=== PATIENT | male | born 1945 | race Caucasian/White ===

== ENCOUNTER 2018-11-02 11:34 | Inpatient (IN) | payer MEDICARE, BC ==
[2018-11-02] MEDS ORDERED: Iopamidol 370 76% 50 ML VIAL FS ONE (11:59)
[2018-11-02 12:27] LABS: #Monocytes 0.9 thou/uL (0.11-0.59); #Neutrophils 8.6 thou/uL (1.40-6.50); %Basophils 0.2 % (0.0-1.0); %Eosinophils 0.2 % (0.0-10.0); %Lymphocytes 9.7 % (21.0-51.0); %Monocytes 8.3 % (0.0-10.0); %Neutrophils 81.6 % (42.0-75.0); Hemoglobin 11.8 g/dL (14.0-18.0); Mean Corpuscular HGB CONC 31.1 g/dL (32.0-36.0); Mean Platelet Volume 8.3 fL (7.4-10.4); Platelet Count 247 thou/uL (130-400); RBC Distribution Width 15.2 % (11.5-14.5); Red Blood Cell (RBC) Count 3.68 mill/uL (4.70-6.10); White Blood Cell (WBC) Count 10.6 thou/uL (4.8-10.8)
[2018-11-02 13:11] LABS: Prothrombin Time 81.8 SEC (12.0-14.7)
[2018-11-02 13:12] LABS: PTT 101.3 SEC (22.9-36.1)
[2018-11-02 13:15] LABS: INR-International Normal Ratio 10.4
--- NOTE | 2018-11-02 13:18 | RAD ---
PORTABLE CHEST: Date: 11/02/18 HISTORY: Renal cell carcinoma. COMPARISON: 10/03/11. FINDINGS: Mild elevation left hemidiaphragm. The lung zepeda appear clear. Vascular markings normal. Heart size upper normal. Postop sternotomy change. Prosthetic aortic valve. IMPRESSION: No acute abnormality. POS: JOSHUA
[2018-11-02 13:19] LABS: ALT (SGPT) 16 U/L (8-55); AST (SGOT) 22 U/L (5-34); Albumin 2.4 g/dL (3.4-4.8); Alkaline Phosphatase 90 U/L (40-150); Anion Gap 15 mmol/L (10-20); BUN (Urea Nitrogen) 68 mg/dL (8.4-25.7); Bilirubin, Total 0.6 mg/dL (0.2-1.2); Calc. Creatinine Clearance 0 mL/min (70-130); Calcium 9.2 mg/dL (7.8-10.44); Chloride 116 mmol/L (98-107); Estimated GFR-MDRD 9; Globulin 3.7 g/dL (2.4-3.5); Glucose 83 mg/dL (83-110); Potassium 4.9 mmol/L (3.5-5.1); Protein, Total 6.1 g/dL (5.8-8.1); Sodium 134 mmol/L (136-145)
[2018-11-02 13:26] LABS: Carbon Dioxide 8 mmol/L (23-31)
--- NOTE | 2018-11-02 14:19 | CT ---
FCT Brain WO Con: 11/02/2018 12:39 PM CLINICAL HISTORY: Altered mental status. COMPARISON: None. FINDINGS: Hemorrhage: None. Ventricular system: Normal in size and morphology for the patient's age. Cerebral parenchyma: Normal Midline shift: None. Calvarium: Normal. Visualized Paranasal sinuses: Mild paranasal sinus inflammatory mucosal prominence. IMPRESSION: No acute intracranial abnormalities.
--- NOTE | 2018-11-02 14:31 | CT ---
FCT Abdomen Pelvis WO Con History: [Mild abdominal pain and vomiting and decreased appetite] Comparison: CT from 2012 Findings: Mild scarring in the lung bases. Small nodule within the right middle lobe measuring 4 mm. No pericolic effusion. Extensive soft tissue masslike studding of the left perirenal space marked wit h progressed from 2010 and 2012. Interval enlargement inferior pole cyst. Multiple hemorrhagic cysts. Abnormal right periaortic adenopathy. Abnormal left periaortic adenopathy. There are no dilated loops of large or small bowel. There is abnormal anterior descending: Due to the large soft tissue masses within the left perirenal space with thickened perirenal fascia. The aortic contour is nonaneurysmal. There is unremarkable. No dilated loops of large or small bowel. There are punctate calculi in the intrarenal collecting system. There appears be a 1 mm interpolar as well as for lower pole 1-2 mm calculi. No definite hydronephrosis is appreciated. There is an anteri or cortical mass measuring 51 Hounsfield units which is increased in size from 2012 now measuring claudia roximately 2.8 cm. Impression: 1. Marked interval size increase of the soft tissue masses studding the left perirenal space with ant erior displacement of the colon as well as rightward displacement of the small bowel appears concerni ng for malignant process may reflect metastatic disease from the patient's right-sided renal cancer. 2. Interval enlargement inferior pole left renal mass concerning for superimposed renal cell carcinom a. 3. Periaortic adenopathy suggestive of metastatic disease. 4. Nonobstructive punctate left-sided renal calculi.
[2018-11-02] MEDS ORDERED: Sodium Bicarbonate 150 MEQ in Dextrose 5% in Water 1,000 ML IV SCH (14:45)
[2018-11-02] MEDS ORDERED: Phytonadione 10 MG/ML AMP SLOW IVP SCH (16:30)
[2018-11-02] MEDS ORDERED: Acetaminophen 325 MG TAB PO PRN (16:54)
[2018-11-02] MEDS ORDERED: Acetaminophen 650 MG Suppository PR PRN (16:54)
[2018-11-02] MEDS ORDERED: Ondansetron PF 4 MG/2 ML Vial IVP PRN (16:54)
[2018-11-02] MEDS ORDERED: Ondansetron ODT 4 MG TAB PO PRN (16:54)
--- NOTE | 2018-11-02 17:21 | PRG ---
DATE OF SERVICE: 11/02/2018 SUBJECTIVE: Discussed the case with Diamante Nation and with Dr. Luz. This patient is a 73-year-old male with a history of renal cell carcinoma, status post right nephrectomy. He is followed at [facility] and was just seen there in August. Apparently, had some followup testing at that time, and there was some concern for possible lymphadenopathy in the left cervical area. They were told at that time that the cancer was "stable," but they were unaware of any additional masses at that time. The patient was brought to the emergency room today with some generalized confusion. His reports that he has stopped eating and drinking over the last several days, but his appetite has been very poor even prior to that. He had an INR noted to be 8.9 on and his stopped his Coumadin since that time, he is on the Coumadin for a prosthetic aortic valve. Today, the patient appears to be very cachectic. OBJECTIVE: VITAL SIGNS: His BP is 128/53, pulse 80, respirations 16, temperature 97.9, and O2 saturations 97% on room air. GENERAL: The patient is encephalopathic. He is not combative. He is pleasant and will follow some commands. HEART: Slightly hyperdynamic, irregular, and a mechanical click is noted. LUNGS: Clear. ABDOMEN: Benign. EXTREMITIES: Have trace edema. LABORATORY DATA: Labs are notable for a normal white count, hemoglobin 11.8. INR is now 10.4. His CO2 is 8, his BUN is 68, and his creatinine is 6, which is up from the most recent value of 1.[address] of the abdomen reveals new metastatic disease infiltrating surrounding the left kidney. CT brain is negative. Chest x-ray is negative. IMPRESSION AND PLAN: This patient is a 73-year-old male with a history of renal cell carcinoma, which now appears to be metastatic to the left kidney after he has previously had a right nephrectomy. This apparently is news to the patient and his . The patient primarily follows at [facility]. He has severe acute on chronic renal failure with severe acidosis. Dr. Luz has seen the patient already, starting him on a bicarb drip and some hydration to see if we can improve his acidosis and azotemia. He appears encephalopathic, which may be related to the uremia, but could also be related to the elevated INR or the acidosis. We will keep the patient in the IMCU, give him some vitamin K. the patient's has made a phone call to [facility] at the encouragement of Dr. Luz. The transfer center will speak to their physicians and they have Dr. Luz's number should they want to discuss any further action or potential transfer to that facility. Job ID: [id number]
[2018-11-02 19:09] VITALS: BMI 18.9
--- NOTE | 2018-11-02 19:34 | HP ---
CHIEF COMPLAINT: Confusion and refusing to eat, per his . HISTORY OF PRESENT ILLNESS: Mr. Jha is a 73-year-old man with a background history of renal cell cancer, hypertension, history of mechanical aortic valve replacement, who presents today with confusion and decreased oral intake for the last week. His states she first noticed changes last , when he was refusing to take anything in by mouth, food or drinks, and spitting up with any attempt to encourage him to eat or drink. She denies any vomiting. On Friday, she states they went to run an errand and he drove as he normally does. However, she noticed he began to sort of in and out of the savanah, therefore she had him pullover and drove herself. Later that day, she states he had an episode of weakness resulting in him slowly falling to the floor, but states he did not sustain any head injury or injuries elsewhere. The patient was seen in the [facility] last Friday and due to the INR level of 8, was advised to hold Coumadin, which they have done since then. The INR today in the ER is further elevated at 10.4. Per his , he has shown no signs of bleeding as far as she is aware, though she states he uses the bathroom independently, therefore, she is not certain if he has had any bloody stools or hematuria. He has a history of renal cell cancer, for which he undergoes treatment at [facility]. He was diagnosed in 2010 and has had a previous right nephrectomy. He has been taking daily treatment with Cabometyx. REVIEW OF SYSTEMS: The patient has been afebrile without any recent cough or cold. No complaints of headaches or dizziness. No complaints of visual changes. No slurred speech; however, he has been confused. According to the nurse, he was oriented to the year when he first came in, and at present, believes it is currently 1994. The patient has been also more fidgety. According to his , he has had gradual significant weight loss and has a poor appetite at baseline, but over the last 4 to 5 days, has been refusing any intake by mouth, food or drinks. At baseline, he was drinking a minimal amount of fluids prior to becoming confused. He has had no complaints of chest pain and no complaints of shortness of breath. No abdominal pain or cramping. All other review of systems are negative. Due to treatment for renal cell cancer, he tends to have 2 to 3 loose stools a day at baseline according to his . PAST MEDICAL HISTORY: 1. Renal cell cancer diagnosed in 2010, currently undergoing treatment at [facility]. 2. Hypertension. 3. CKD. 4. Hypercholesterolemia. 5. Hypothyroidism. 6. Anxiety. 7. Depression. PAST SURGICAL HISTORY: 1. Previous right nephrectomy in 2010 due to renal cell cancer. 2. Aortic valve replacement, on Coumadin. 3. Left leg surgery. SOCIAL HISTORY: He does not smoke. No alcohol use. No illicit drug use. He lives with his and is normally fully independent. He was driving up until recently. ALLERGIES: NO KNOWN DRUG ALLERGIES. CURRENT MEDICATIONS: 1. Warfarin. 2. Amlodipine. 3. Pravastatin. 4. Lomotil. 5. Levothyroxine. 6. Calcitriol. 7. Lexapro. 8. Nexium. 9. Cabometyx. PHYSICAL EXAMINATION: GENERAL: The patient appears to be in no distress, but frequently fidgeting with cables and notably confused. The patient appears very cachectic and frail. VITAL SIGNS: Temperature 98.9, pulse 90, respirations 18, O2 saturations 96% on room air, and blood pressure 132/72. HEENT: Normocephalic and atraumatic. Facial wasting noted. Pupils are equal, round, and reactive to light. Sclerae are anicteric. Oropharynx is clear. NECK: Supple. LUNGS: Clear to auscultation bilaterally without wheezes, rales, or rhonchi. CARDIAC: Regular rate and rhythm without audible murmurs, rubs, or gallops. No chest wall tenderness. ABDOMEN: Soft, nontender, nondistended. Normoactive bowel sounds present. EXTREMITIES: Notable for +1 edema. No calf tenderness or swelling. NEUROLOGIC: The patient is confused, but able to follow commands. Alert to person. No focal motor deficits. SKIN: No rash or jaundice. LABORATORY DATA: White blood count 10.6, hemoglobin 11.8, hematocrit 37.9, and platelets 247. PT 81.8, INR 10.4, PTT 101.3. Sodium 134, potassium 4.9, chloride 116, carbon oxide 8, anion gap 15, BUN 68, creatinine 6.03, GFR 9, glucose 83, calcium 9.2, total bilirubin 0.6, AST 22, ALT 16, alkaline phosphatase 97, total protein 6.1, albumin 2.4, globulin 3.7. IMAGING DATA: 1. Chest x-ray, 11/02/2018. Mild elevation of left hemidiaphragm. Prosthetic aortic valve and postop sternotomy change noted. Otherwise, no acute abnormality. 2. CT brain, 11/02/2018. No acute intracranial abnormalities. 3. CT abdomen and pelvis, 11/02/2018. Marked interval increased size of the soft tissue mass abutting left perirenal space with anterior displacement of the colon as well as rightward displacement of the small bowel, concerning for malignant process that may reflect metastatic disease from the patient's right-sided renal cancer. Interval enlargement of inferior pole renal mass concerning for superimposed renal cell carcinoma. Periaortic adenopathy suggestive of metastatic disease. Nonobstructive punctate left-sided renal calculi present. IMPRESSION AND PLAN: Mr. Jha is a 73-year-old man, who is being admitted for management of the followin. Encephalopathy. The patient with confusion since last week. Metastatic disease noted on CT of the abdomen and pelvis. However, no apparent liver metastases, and LFTs are unremarkable. CT brain has not indicated any presence of metastases. This is likely combination of both acidemia and supratherapeutic INR. 2. Acidemia. The patient has been initiated on IV sodium bicarb. We will continue to monitor. We will continue IV hydration. The patient will be admitted to [facility]. 3. Acute on chronic renal failure. The patient's baseline GFR is [address] Luz has been consulted, of Nephrology. We will continue IV hydration and recommendations as per Dr. Luz. 4. Supratherapeutic INR. The patient has been off Coumadin since last FridayOctober 28. We will continue to hold anticoagulants and vitamin K 5 mg IV as the patient is not tolerating/refusing oral intake. We will continue to monitor INR. 5. Hypertension. Monitor blood pressure. 6. Renal cell cancer. The patient's has informed [facility] of his admission and unclear if they will want him transferred to [place]. Awaiting a call back. 7. Venous thromboembolism prophylaxis. On hold, given supratherapeutic INR and risk for bleed. 8. Gastrointestinal prophylaxis. 9. Code status. His states they did discuss advanced directives almost [address] Son, his primary care physician. She does not recall the details of what his wishes were in regard to resuscitation. Therefore, she would like to leave him in full code status and is agreeable to discuss with Palliative Care to place a new advanced directives. She is his surrogate decision maker. The patient's case was discussed with Dr. Hyde, who has also assessed the patient and agrees with plan as described above. Job ID: [id number] [facility]
--- NOTE | 2018-11-02 23:14 | CON ---
DATE OF CONSULTATION: 11/02/2018 CONSULTING PHYSICIAN: Michele Hyde MD. REASON FOR CONSULT: Acute kidney injury. REASON FOR ADMISSION: Altered mentation. HISTORY OF PRESENT ILLNESS: This is a 73-year-old male with history of chronic kidney disease, renal cell carcinoma nephrectomy, hypothyroidism, anxiety, came to the hospital with the above complaint. No fever or chills. The patient has been having poor p.o. intake and has been losing weight. He has been following with [facility]. PAST MEDICAL HISTORY: Positive for renal cell carcinoma, CKD stage 3, hypertension, hyperlipidemia, hypothyroidism, anxiety, depression. PAST SURGICAL HISTORY: Right nephrectomy, aortic valve replacement, left leg surgery. HOME MEDICATIONS: 1. Coumadin. 2. Amlodipine. 3. Pravastatin. 4. Lomotil. 5. Levothyroxine. 6. Calcitriol. 7. Lexapro. 8. Nexium. 9. Cabometyx. 10. Vomiting. ALLERGIES: NO KNOWN DRUG ALLERGIES. SOCIAL HISTORY: No smoking, alcohol, or illicit drug use. FAMILY HISTORY: No history of kidney disease. REVIEW OF SYSTEMS: PHYSICAL EXAMINATION: GENERAL: This is a well-built male, in no apparent distress. VITAL SIGNS: Temperature 97.9, pulse 80, respirations 16, and blood pressure 144/80. HEENT: Atraumatic, normocephalic. Oral mucosa is dry. NECK: Supple. CV: S1 and S2 heard. Rate and rhythm regular. RESPIRATORY: Clear. GI: Abdomen is soft. MUSCULOSKELETAL: 1+ edema. DERMATOLOGIC: No skin rash. NEUROLOGICAL: Slightly confused and somnolent. PSYCH: Not responsive. LABORATORY DATA: Hemoglobin is 11.8. Potassium 4.9, BUN is 68, creatinine 6.02. ASSESSMENT: 1. Acute kidney injury on chronic kidney disease, most likely volume depletion. No hydronephrosis on the CT scan. We will monitor. 2. Severe metabolic acidosis. ABG not available due to elevated INR. 3. Hyponatremia. 4. Elevated BUN. 5. Hypoalbuminemia. 6. Anemia, mild. 7. Altered mentation, we will monitor. PLAN: CT scan shows recurrence of carcinoma. I advised the family to follow with [facility] for now and plan is to hydrate and monitor. No acute indications for dialysis, but if no significant improvement in labs, might need renal replacement therapy. Avoid nephrotoxins. Continue supportive care. We will have bicarb drip and then change it to NS as tolerated. Thank you for the consult. Job ID: [id number]
[2018-11-03] MEDS: Sodium Chloride 0.9% 1,000 ML IV SCH ×3 (04:00→22:20)
[2018-11-03 04:56] LABS: INR-International Normal Ratio 1.7; PTT 46.9 SEC (22.9-36.1)
[2018-11-03 05:09] LABS: ALT (SGPT) 16 U/L (8-55); AST (SGOT) 20 U/L (5-34); Albumin 2.1 g/dL (3.4-4.8); Alkaline Phosphatase 84 U/L (40-150); Anion Gap 12 mmol/L (10-20); BUN (Urea Nitrogen) 67 mg/dL (8.4-25.7); Bilirubin, Total 0.7 mg/dL (0.2-1.2); Calc. Creatinine Clearance 10 mL/min (70-130); Calcium 8.8 mg/dL (7.8-10.44); Carbon Dioxide 17 mmol/L (23-31); Chloride 110 mmol/L (98-107); Estimated GFR-MDRD 9; Globulin 3.4 g/dL (2.4-3.5); Glucose 82 mg/dL (83-110); Protein, Total 5.5 g/dL (5.8-8.1); Sodium 135 mmol/L (136-145)
[2018-11-03 06:13] LABS: #Eosinphils 0.1 thou/uL (0.0-0.7); #Lymphocytes 0.5 thou/uL (1.20-3.40); #Monocytes 0.4 thou/uL (0.11-0.59); %Basophils 0.2 % (0.0-1.0); %Eosinophils 0.9 % (0.0-10.0); %Lymphocytes 7.4 % (21.0-51.0); %Monocytes 5.1 % (0.0-10.0); %Neutrophils 86.4 % (42.0-75.0); Hemoglobin 11.2 g/dL (14.0-18.0); Mean Corpuscular HGB CONC 32.6 g/dL (32.0-36.0); Mean Corpuscular Hemoglobin 32.1 pg (27.0-31.0); Mean Corpuscular Volume 98.6 fL (78.0-98.0); Mean Platelet Volume 8.5 fL (7.4-10.4); Platelet Count 219 thou/uL (130-400); Red Blood Cell (RBC) Count 3.49 mill/uL (4.70-6.10); White Blood Cell (WBC) Count 6.9 thou/uL (4.8-10.8)
[2018-11-03] MEDS: Famotidine/PF 20 mg/2ml Vial SLOW IVP SCH (08:57)
[2018-11-03] MEDS ORDERED: Prevnar 13-Val Conj/PF 0.5 ML SYRINGE IM ONE (09:00)
--- NOTE | 2018-11-03 14:14 | PDOC.PN ---
- Subjective Encounter Start Date: 11/03/18 Encounter Start Time: 14:12 Subjective: pt awake but not very alert.follows simple commands -: but very hard of hearing & defer Qs to who is at bedside -: understands the current diagnosis & has no new Qs - Objective Resuscitation Status - Order Detail: 11/02/18 16:54 Resuscitation Status Routine Co-Sign Provider: Resuscitation Status: FULL: Full Resuscitation Discussed with: Patients Additional comments: Advanced directives in place with Dr. Son, PCP. Does not recall what was decided on, as it was >10 years ago. Would like to discuss with palliative care and remain in FULL Code Status until then. MAR Reviewed: Yes Vital Signs & Weight: Vital Signs (12 hours) Temp 11/03/18 11:25 97.8 F 11/03/18 07:16 98.2 F Weight Admit Weight 139 lb 11.2 oz Weight 139 lb 11.2 oz Most Recent Monitor Data Heart Rate from ECG 71 NIBP 119/82 NIBP BP-Mean 94 Respiration from ECG 16 SpO2 100 I&O: 11/02/18 11/03/18 11/04/18 06:59 06:59 06:59 Intake Total 240 Output Total 250 Balance -250 240 Result Diagrams: 11/03/18 04:34 11/03/18 04:34 Additional Labs: Laboratory Tests 11/02/18 11/03/18 12:51 04:34 Carbon Dioxide 8 L* 17 L Radiology Reviewed by me: Yes Phys Exam - Physical Examination Constitutional: NAD thin and cachectic looking,pale,awake and smiles when talked to HEENT: PERRLA, moist MMs, sclera anicteric, oral pharynx no lesions temporal wasting Neck: no nodes, no JVD, supple, full ROM Respiratory: no wheezing, no rales, no rhonchi, clear to auscultation bilateral Cardiovascular: RRR, no significant murmur Gastrointestinal: soft, non-tender, no distention, positive bowel sounds Musculoskeletal: no edema, pulses present Neurological: non-focal, normal sensation, moves all 4 limbs Psychiatric: normal affect Deviation from normal: oreinted to self and person Skin: no rash Dx/Plan (1) Acute metabolic encephalopathy Code(s): G93.41 - METABOLIC ENCEPHALOPATHY Status: Acute Comment: improving (2) STEFANIA (acute kidney injury) Code(s): N17.9 - ACUTE KIDNEY FAILURE, UNSPECIFIED Status: Acute (3) Metabolic acidosis Code(s): E87.2 - ACIDOSIS Status: Acute (4) Warfarin-induced coagulopathy Code(s): D68.32 - HEMORRHAGIC DISORD D/T EXTRINSIC CIRCULATING ANTICOAGULANTS; T45.515A - ADVERSE EFFECT OF ANTICOAGULANTS, INITIAL ENCOUNTER Status: Acute Comment: INR back to normal at 1.7.MOnitor.cont to hold warfarin (5) Benign hypertension Code(s): I10 - ESSENTIAL (PRIMARY) HYPERTENSION Status: Chronic (6) Prosthetic replacement of heart valve Code(s): Z95.2 - PRESENCE OF PROSTHETIC HEART VALVE Status: Chronic Comment : AVR.Coumadin on hold due to supratherapeutic INR (7) Metastatic renal cell carcinoma Code(s): C64.9 - MALIGNANT NEOPLASM OF UNSP KIDNEY, EXCEPT RENAL PELVIS Status : Chronic Qualifiers: Laterality: left Qualified Code(s): C64.2 - Malignant neoplasm of left kidney, except renal pelvis (8) Protein-calorie malnutrition, severe Code(s): E43 - UNSPECIFIED SEVERE PROTEIN-CALORIE MALNUTRITION Status: Chronic - Plan DVT proph w/SCDs tried to get Pt transferred to [facility] w help of Dr. Luz.Denied -: will cont IVF. Poor candidate for Hemodilaysis -: will further discuss w family and et PCT help as well for decison making -: restart Home meds when more awake to take PO safely.BP controlled -: am labs.Poor prognosis with new Left sided renal mass w Mets * . Review of Systems - Review of Systems Other: can not be obtained reliably due to confusion - Medications/Allergies Allergies/Adverse Reactions: Allergies Allergy/AdvReac Type Severity Reaction Status Date / Time No Known Allergies Allergy Verified 06/20/14 11:01 Medications: Current Medications Acetaminophen (Tylenol) 650 mg PO Q4H PRN PRN Reason: Headache/Fever/Mild Pain (1-3) Acetaminophen (Tylenol) 650 mg KS Q4H PRN PRN Reason: Headache/Fever/Mild Pain (1-3) Famotidine (Pepcid) 20 mg SLOW IVP DAILY [facility] Last Admin: 11/03/18 08:57 Dose: 20 mg Sodium Chloride (Normal Saline 0.9%) 1,000 mls @ 100 mls/hr IV .Q10H [facility] Last Admin: 11/03/18 08:57 Dose: 1,000 mls Ondansetron HCl (Zofran Odt) 4 mg PO Q6H PRN PRN Reason: Nausea/Vomiting Ondansetron HCl (Zofran) 4 mg IVP Q6H PRN PRN Reason: Nausea/Vomiting Sodium Chloride (Flush - Normal Saline) 10 ml IVF Q12HR PRN PRN Reason: Saline Flush Sodium Chloride (Flush - Normal Saline) 10 ml IVF PRN PRN PRN Reason: Saline Flush
--- NOTE | 2018-11-03 15:19 | PQF ---
JANETTE LEWIS RICHA MD [id number] IMCU- B10 [id number] CLINICAL DOCUMENTATION IMPROVEMENT CLARIFICATION FORM: ICD-10 Updated PLEASE DO AN ADDENDUM TO THE PROGRESS NOTE WITH ANY DOCUMENTATION UPDATES OR ADDITIONS AND CARRY THROUGH TO DC SUMMARY. THANK YOU. DATE: 11/03/18 ATTN: DR. Liz ADAN Please exercise your independent, professional judgment in responding to the clarification form. Clinical indicators are provided on the bottom of this form for your review. Please check appropriate box(s): [ ] Encephalopathy: Type: [X ] Acute [ ] Subacute [ ] Chronic Etiology: [ ] Hypertensive [ X] Metabolic [ ] Toxic [ ] Transient Alteration of Awareness [ ] Other diagnosis [ ] Unable to determine In addition, please specify: Present on Admission (POA): [ X ] Yes [ ] No [ ] Unable to determine For continuity of documentation, please document condition throughout progress notes and discharge summary. Thank You. CLINICAL INDICATORS - SIGNS / SYMPTOMS / LABS / PN (JOHN) IMPRESSION AND PLAN : HE APPEARS ENCEPHALOPATHIC, WHICH MAY BE RELATED TO THE UREMIA, BUT COULD ALSO BE RELATED TO THE ELEVATED INR, OR THE ACIDOSIS 4 H & P (LOPEZ) IMPRESSION AND PLAN: 1) ENCEPHALOPATHY: THE PATIENT WITH CONFUSION SINCE LAST WEEK. METASTATIC DISEASE NOTED TO THE ABDOMEN AND PELVIS. HOWEVER, NO APPARENT LIVER METASTASIS. AND THE LFT'S ARE UNREMARKABLE. CT BRAIN HAS NOT INDICATED ANY PRESENCE OF METASTASIS. THIS IS MOST LILEY COMBINATION OF BOTH ACIDEMIA AND SUPRA-THERAPEUTIC INR. NO FURTHER MENTION TO DATE BMI 18.9 RISK FACTORS ALTERED MENTAL STATUS METASTATIC CANCER ADVANCED AGE DEHYDRATION TREATMENTS: IMCU MONITORING IV FLUIDS NS 11/02-PRESENT BRAIN CT DONE IN ER THANK YOU! TAMERA (This form is maintained as a part of the permanent medical record) 2014 [employer], [employer]. All Rights Reserved [email or web address] [phone] CHUCK
--- NOTE | 2018-11-03 15:37 | PQF ---
JANETTE LEWIS RICHA MD [id number] CU- B10 [id number] CLINICAL DOCUMENTATION IMPROVEMENT CLARIFICATION FORM: ICD-10 Updated PLEASE DO AN ADDENDUM TO THE PROGRESS NOTE WITH ANY DOCUMENTATION UPDATES OR ADDITIONS AND CARRY THROUGH TO DC SUMMARY. THANK YOU. Date: 11/03/18 ATTN: DR. ADAN Please exercise your independent, professional judgment in responding to the clarification form. Clinical indicators are provided on the bottom of this form for your review. Please check appropriate box(s): [ ] Protein Calorie Malnutrition: [ ] Mild [ ] Moderate [ X] Severe [ ] Cachexia [ ] Other diagnosis [ ] Unable to determine In addition, please specify: Present on Admission (POA): [ X ] Yes [ ] No [ ] Unable to determine CLINICAL INDICATORS - SIGNS / SYMPTOMS / LABS 11/02 PN (JOHN) SUBJECTIVE: THE PT APPEARS TO BE VERY CACHETIC, REPORTS THAT HE HAS STOPPED EATING AND DRINKING OVER THE LAST SEVERAL DAYS, BUT THAT HIS APPETITES HAS BEEN VERY POOR EVEN PRIOR TO THAT BMI 18.9 RISK FACTORS HX OF RENAL CELL CARCINOMA WITH RECENT METASTASIS TO LEFT KIDNEY REPORTS PT HAS NOT EATEN IN DAYS CHRONIC DIARRHEA D/T CHEMO DRUG TREATMENT: Dietary consult Nutritional supplements (NEPRO TID) THANK YOU ! TAMERA (This form is maintained as a part of the permanent medical record) 2014 [employer]. All Rights Reserved [email or web address] [phone] [email or web address]
--- NOTE | 2018-11-03 17:54 | PRG ---
DATE OF SERVICE: 11/03/2018 SUBJECTIVE: Patient was seen and examined at bedside and overnight events noted. Patient denies any shortness of breath or chest pain or palpitation. No history of nausea or vomiting or diarrhea or fever or chills or cramps. OBJECTIVE: GENERAL: This is a thin-built male, in in no acute distress. VITAL SIGNS: Temperature 98.0. Heart rate 78. Respiratory rate 18. Blood pressure 107/63. HEENT: Atraumatic, normocephalic. Oral mucosa is moist NECK: Supple. CARDIOVASCULAR: S1, S2 heard. Rate and rhythm regular. RESPIRATORY: Clear to auscultation. GASTROINTESTINAL: Abdomen is soft. MUSCULOSKELETAL: No tenderness. No edema. DERMATOLOGIC: No skin rash. NEUROLOGIC: Alert and awake and oriented X3. No focal neurologic deficits. Moving all the extremities. PSYCHIATRIC: Mood and affect normal. LABORATORY DATA: Potassium is 4.0, BUN is 67, creatinine is 5.9 ASSESSMENT AND PLAN: 1. Acute kidney injury on chronic kidney stage 3, no improvement in renal function. 2. Metabolic acidosis, better. 3. Hyponatremia. 4. Anemia. 5. Metastatic renal cell carcinoma with poor prognosis. PLAN: Had discussion with MD Sheehan, they declined the transfer and wants to follow up while he is outpatient and also had discussion with the and sister at the bedside and plan is to continue IV fluids for one more day to see improvement in renal function. If no improvement by tomorrow, the patient wants to pursue dialysis at least couple of sessions to see any improvement in mental status and therefore we will continue with dialysis and improvement of uremia. If no significant improvement, the patient and family wants to pursue comfort measures or hospice care. We will continue to follow. Job ID: [id number]
[2018-11-03 18:20] LABS: Bilirubin Negative (Negative); Blood, Urine Large (Negative); Clarity CLOUDY (Clear); Glucose, Urine (Dipstick) Negative (Negative); Leukocyte Moderate (Negative); Nitrite Negative (Negative); Protein, Urine (Dipstick) 30 mg/dL (Neg-Trace); Specific Gravity, Urine 1.008 (1.002-1.036); Urobilinogen 0.2 mg/dL (0.2-1.0)
[2018-11-03 18:24] LABS: Hyaline Casts/LPF 0-3 HYALINE CAST LPF (0-3 Hyaline); RBC/HPF GREATER THAN 50-TNTC HPF (0-3); Squamous Epithelial None Seen HPF (0-3)
[2018-11-03 18:27] LABS: Yeast-AUWi Flag 79.5 (0-25.0)
[2018-11-03 18:38] LABS: Bacteria/HPF Rare-Few HPF (None Seen); Yeast-All Forms None Seen HPF (None Seen)
[2018-11-04 05:14] LABS: Anion Gap 13 mmol/L (10-20); BUN (Urea Nitrogen) 64 mg/dL (8.4-25.7); Calc. Creatinine Clearance 11 mL/min (70-130); Calcium 8.3 mg/dL (7.8-10.44); Carbon Dioxide 13 mmol/L (23-31); Chloride 116 mmol/L (98-107); Estimated GFR-MDRD 11; Glucose 70 mg/dL (83-110); Potassium 3.9 mmol/L (3.5-5.1); Sodium 138 mmol/L (136-145)
[2018-11-04] MEDS: Sodium Chloride 0.9% 1,000 ML IV SCH (09:18)
[2018-11-04] MEDS: Amlodipine 5 MG TAB PO SCH (09:18)
[2018-11-04] MEDS: Famotidine/PF 20 mg/2ml Vial SLOW IVP SCH (09:18)
[2018-11-04] MEDS ORDERED: Sodium Bicarbonate 150 MEQ in Sodium Chloride 0.9% 1,000 ML IV SCH (10:15)
[2018-11-04] MEDS ORDERED: Sodium Bicarbonate 150 MEQ in Dextrose 5% in Water 1,000 ML IV SCH ×2 (10:45→11:00)
--- NOTE | 2018-11-04 11:02 | PRG ---
DATE OF SERVICE: 11/04/2018 SUBJECTIVE: Patient was seen and examined at bedside and overnight events noted. Patient denies any shortness of breath or chest pain or palpitation. No history of nausea or vomiting or diarrhea or fever or chills or cramps. OBJECTIVE: GENERAL: This is a thin-built male, in no apparent distress. VITAL SIGNS: Temperature . Pulse . Respiratory rate 18. Blood pressure 119/76. HEENT: Atraumatic, normocephalic. Oral mucosa is moist NECK: Supple. CARDIOVASCULAR: S1, S2 heard. Rate and rhythm regular. RESPIRATORY: Clear to auscultation. GASTROINTESTINAL: Abdomen is soft. MUSCULOSKELETAL: No tenderness. No edema. DERMATOLOGIC: No skin rash. NEUROLOGIC: Alert and awake and oriented X3. No focal neurologic deficits. Moving all the extremities. PSYCHIATRIC: Mood and affect normal. LABORATORY DATA: Potassium is 3.9, BUN is 64, creatinine is 5.3. ASSESSMENT AND PLAN: 1. Acute kidney injury on chronic kidney disease 3. Seems likely renal function is getting better. Creatinine down to 5.3 with hydration. 2. Metabolic acidosis. We will have the bicarb drip today. 3. Hyponatremia. 4. Anemia. 5. Metastatic renal cell carcinoma. 6. Prognosis is guarded. Renal function seems to be getting better. Mentation likely better. We will continue on hydration for now. No acute indication for dialysis. We will follow. We will add bicarb drip. Job ID: [id number]
--- NOTE | 2018-11-04 15:43 | PDOC.PN ---
- Subjective Encounter Start Date: 11/04/18 Encounter Start Time: 15:20 Subjective: f/u for metastatic renal cell carcinoma and STEFANIA/CKD with minimal -: improvement in renal function with IVF's. Remains weak and has -: not ambulated yet. Tolerating po intake in small quantities. - Objective Resuscitation Status - Order Detail: 11/02/18 16:54 Resuscitation Status Routine Co-Sign Provider: Resuscitation Status: FULL: Full Resuscitation Discussed with: Patients Additional comments: Advanced directives in place with Dr. Son, PCP. Does not recall what was decided on, as it was >10 years ago. Would like to discuss with palliative care and remain in FULL Code Status until then. MAR Reviewed: Yes Vital Signs & Weight: Vital Signs (12 hours) Temp Pulse BP 11/04/18 09:18 67 118/76 11/04/18 07:15 98.4 F 11/04/18 03:55 97.9 F Weight Admit Weight 139 lb 11.2 oz Weight 152 lb 8.958 oz Most Recent Monitor Data Heart Rate from ECG 79 NIBP 115/61 NIBP BP-Mean 79 Respiration from ECG 16 SpO2 99 I&O: 11/03/18 11/04/18 11/05/18 06:59 06:59 06:59 Intake Total 2120 Output Total 250 450 Balance -250 1670 Result Diagrams: 11/03/18 04:34 11/04/18 04:39 Additional Labs: Laboratory Tests 11/02/18 11/02/18 11/02/18 12:10 12:51 12:51 Hgb 11.8 L INR 10.4 H* Sodium 134 L BUN 68 H Creatinine 6.03 H 11/03/18 11/03/18 04:34 04:34 Hgb INR 1.7 Sodium 135 L BUN 67 H Creatinine 5.98 H EKG Reviewed by me: Yes (Tele - A-fib in 50's) Phys Exam - Physical Examination ill-appearing, frail, with bitemporal wasting HEENT: PERRLA, sclera anicteric, oral pharynx no lesions Neck: no nodes, no JVD, supple, full ROM Respiratory: no wheezing, no rales, no rhonchi, clear to auscultation bilateral S1, S2 Cardiovascular: no rub, gallop, irregular Gastrointestinal: soft, non-tender, no distention, positive bowel sounds Musculoskeletal: no edema, pulses present Neurological: normal sensation, moves all 4 limbs Skin: normal turgor, cap refill <2 seconds Dx/Plan (1) STEFANIA (acute kidney injury) Code(s): N17.9 - ACUTE KIDNEY FAILURE, UNSPECIFIED Status: Acute Comment: Persistent, likely new baseline given renal cell carcinoma, contemplating HD but likely will not affect group home survival or quality of life, serial creatinine (2) Acute metabolic encephalopathy Code(s): G93.41 - METABOLIC ENCEPHALOPATHY Status: Acute Comment: Mild improvement, likely multifactorial process (3) Warfarin-induced coagulopathy Code(s): D68.32 - HEMORRHAGIC DISORD D/T EXTRINSIC CIRCULATING ANTICOAGULANTS; T45.515A - ADVERSE EFFECT OF ANTICOAGULANTS, INITIAL ENCOUNTER Status: Acute Comment: INR back to normal at 1.7, Hold Coumadin (4) Metastatic renal cell carcinoma Code(s): C64.9 - MALIGNANT NEOPLASM OF UNSP KIDNEY, EXCEPT RENAL PELVIS Status : Chronic Qualifiers: Laterality: left Qualified Code(s): C64.2 - Malignant neoplasm of left kidney, except renal pelvis Comment: Appears end-stage process, palliative care and transition to hospice for home (5) Protein-calorie malnutrition, severe Code(s): E43 - UNSPECIFIED SEVERE PROTEIN-CALORIE MALNUTRITION Status: Chronic Comment: Nepro TID, Reg Diet - Plan plan discussed w/ family, PT/OT, social work manager, out of bed/ambulate, DVT proph w/SCDs Continue supportive mgmt -: Continue IVF's -: Avoid nephrotoxic meds and limit contrast -: Palliative care, consider hospice -: PT evaluation for functional assessment * AM lab: BMP
[2018-11-05 05:46] LABS: Anion Gap 11 mmol/L (10-20); BUN (Urea Nitrogen) 61 mg/dL (8.4-25.7); Calc. Creatinine Clearance 13 mL/min (70-130); Carbon Dioxide 17 mmol/L (23-31); Chloride 114 mmol/L (98-107); Estimated GFR-MDRD 11; Glucose 77 mg/dL (83-110); Potassium 3.4 mmol/L (3.5-5.1); Sodium 139 mmol/L (136-145)
[2018-11-05] MEDS: Sodium Chloride 0.9% 1,000 ML IV SCH ×3 (06:00→16:54)
[2018-11-05] MEDS: Amlodipine 5 MG TAB PO SCH (09:34)
[2018-11-05] MEDS ORDERED: Diphenoxylate HCl/Atropine Tablet PO PRN ×2 (10:06→10:39)
[2018-11-05] MEDS ORDERED: Non-Formulary Item 1 EACH (Ascorbic Acid [Vitamin C] 500 MG) PO SCH (10:06)
[2018-11-05] MEDS ORDERED: Famotidine 20 MG TAB PO SCH (10:15)
--- NOTE | 2018-11-05 10:22 | PDOC.PN ---
- Subjective Encounter Start Date: 11/05/18 Encounter Start Time: 10:05 Subjective: f/u metastatic renal cell carcinoma with STEFANIA appearing to be end- stage -: process. No HD planned. Family wishing to pursue hospice care. - Objective Resuscitation Status - Order Detail: 11/02/18 16:54 Resuscitation Status Routine Co-Sign Provider: Resuscitation Status: FULL: Full Resuscitation Discussed with: Patients Additional comments: Advanced directives in place with Dr. Son, PCP. Does not recall what was decided on, as it was >10 years ago. Would like to discuss with palliative care and remain in FULL Code Status until then. MAR Reviewed: Yes Vital Signs & Weight: Vital Signs (12 hours) Temp Pulse BP 11/05/18 09:34 67 109/58 L 11/05/18 04:00 99.1 F 11/05/18 01:52 99.8 F H Weight Admit Weight 139 lb 11.2 oz Weight 152 lb 8.958 oz Most Recent Monitor Data Heart Rate from ECG 83 NIBP 121/57 NIBP BP-Mean 78 Respiration from ECG 15 SpO2 98 I&O: 11/04/18 11/05/18 11/06/18 06:59 06:59 06:59 Intake Total 2120 120 Output Total 450 250 Balance 1670 -130 Result Diagrams: 11/03/18 04:34 11/05/18 05:12 Additional Labs: Laboratory Tests 11/02/18 11/02/18 11/02/18 12:10 12:51 12:51 Hgb 11.8 L INR 10.4 H* Sodium 134 L BUN 68 H Creatinine 6.03 H 11/03/18 11/03/18 04:34 04:34 Hgb INR 1.7 Sodium 135 L BUN 67 H Creatinine 5.98 H EKG Reviewed by me: Yes (Tele - A-fib in 60's) Phys Exam - Physical Examination frail, alert, responds to questions HEENT: PERRLA, sclera anicteric, oral pharynx no lesions Neck: no nodes, no JVD, supple, full ROM Respiratory: no wheezing, no rales, no rhonchi, clear to auscultation bilateral S1, S2 Cardiovascular: no rub, gallop, irregular Gastrointestinal: soft, non-tender, no distention, positive bowel sounds Musculoskeletal: no edema, pulses present Neurological: normal sensation, moves all 4 limbs Skin: normal turgor, cap refill <2 seconds Dx/Plan (1) STEFANIA (acute kidney injury) Code(s): N17.9 - ACUTE KIDNEY FAILURE, UNSPECIFIED Status: Acute Comment: Persistent, likely new baseline given renal cell carcinoma, HD contemplated but likely will not affect nursing home survival or quality of life and family wishing to pursue hospice (2) Acute metabolic encephalopathy Code(s): G93.41 - METABOLIC ENCEPHALOPATHY Status: Acute Comment: Mild improvement, likely multifactorial process (3) Warfarin-induced coagulopathy Code(s): D68.32 - HEMORRHAGIC DISORD D/T EXTRINSIC CIRCULATING ANTICOAGULANTS; T45.515A - ADVERSE EFFECT OF ANTICOAGULANTS, INITIAL ENCOUNTER Status: Acute Comment: INR back to normal at 1.7, Resume Coumadin (4) Metastatic renal cell carcinoma Code(s): C64.9 - MALIGNANT NEOPLASM OF UNSP KIDNEY, EXCEPT RENAL PELVIS Status : Chronic Qualifiers: Laterality: left Qualified Code(s): C64.2 - Malignant neoplasm of left kidney, except renal pelvis Comment: Appears end-stage process, palliative care and transition to hospice for home (5) Protein-calorie malnutrition, severe Code(s): E43 - UNSPECIFIED SEVERE PROTEIN-CALORIE MALNUTRITION Status: Chronic Comment: Nepro TID, Reg Diet - Plan plan discussed w/ family, social work associate, out of bed/ambulate, DVT proph w/SCDs Continue supportive mgmt -: Resume Coumadin -: Hospice consult for home -: Continue IVF's for another 24h -: Home 11/06/18 with hospice * .
--- NOTE | 2018-11-05 10:30 | PDOC.EVN ---
Event Note - Event Note Event Note: ACP Note: Discussed current clinical situation with pt and and that the renal failure is an end-stage process in the context of advanced metastatic renal cell carcinoma and HD will not change the quality of life or outcome. Discussed hospice care and pt and wishing to pursue this option for home. Code status remains DNAR confirmed with pt and . Will continue supportive mgmt another 24h with plans to coordinate with hospice and d/c home 11/06/18. Total ACP time: 16min
[2018-11-05] MEDS ORDERED: Ascorbic Acid 500 mg Chewable Tablet PO SCH (10:45)
--- NOTE | 2018-11-05 11:09 | PRG ---
DATE OF SERVICE: 11/05/2018 SUBJECTIVE: Patient was seen and examined at bedside and overnight events noted. Patient denies any shortness of breath or chest pain or palpitation. No history of nausea or vomiting or diarrhea or fever or chills or cramps. OBJECTIVE: GENERAL: This is a thin-built male, in no apparent distress. VITAL SIGNS: Temperature 99.1. Pulse 87. Respiratory rate 18. Blood pressure 121/57. HEENT: Atraumatic, normocephalic. Oral mucosa is moist NECK: Supple. CARDIOVASCULAR: S1, S2 heard. Rate and rhythm regular. RESPIRATORY: Clear to auscultation. GASTROINTESTINAL: Abdomen is soft. MUSCULOSKELETAL: No tenderness. No edema. DERMATOLOGIC: No skin rash. NEUROLOGIC: Alert and awake and oriented X3. No focal neurologic deficits. Moving all the extremities. PSYCHIATRIC: Mood and affect normal. LABORATORY DATA: Potassium is 3.4, BUN is 61, and creatinine is 5.1. ASSESSMENT AND PLAN: 1. Acute kidney injury on chronic kidney disease. No significant improvement in renal function with hydration, most likely secondary to worsening renal cell carcinoma. The patient is very empathetic, very weak. Family does not wish to have any aggressive measures including surgery or even dialysis. We will stop IV fluids. 2. Metabolic acidosis. 3. Hyponatremia. 4. Anemia. 5. Metastatic renal cell carcinoma. Prognosis guarded. Family does not want to have aggressive measures. Agree with comfort measures for now. Job ID: [id number]
[2018-11-05] MEDS: Cholestyramine/Aspartame 4 gm Packet PO SCH ×2 (11:43→21:18)
[2018-11-05] MEDS ORDERED: CHOLESTYRAMINE 4 GM PO SCH (15:00)
[2018-11-05] MEDS ORDERED: [UNRECOGNIZED DRUG - OTHER] PO SCH (15:00)
[2018-11-05] MEDS: Famotidine/PF 20 mg/2ml Vial SLOW IVP SCH (16:54)
[2018-11-05] MEDS ORDERED: Warfarin Sodium 2 MG TAB PO SCH (17:00)
[2018-11-05] MEDS ORDERED: Non-Formulary Item 1 EACH (Calcitriol [Calcitriol] 0.5 MCG) PO SCH (21:00)
[2018-11-06 01:52] VITALS: BP 112/60
[2018-11-06 05:55] LABS: INR-International Normal Ratio 1.3
[2018-11-06 06:19] LABS: Anion Gap 10 mmol/L (10-20); BUN (Urea Nitrogen) 61 mg/dL (8.4-25.7); Calc. Creatinine Clearance 13 mL/min (70-130); Calcium 7.9 mg/dL (7.8-10.44); Carbon Dioxide 17 mmol/L (23-31); Chloride 115 mmol/L (98-107); Estimated GFR-MDRD 11; Glucose 76 mg/dL (83-110); Potassium 3.7 mmol/L (3.5-5.1); Sodium 138 mmol/L (136-145)
[2018-11-06] MEDS ORDERED: Ferrous Sulfate 325 MG TAB PO SCH (09:00)
[2018-11-06] MEDS ORDERED: Escitalopram Oxalate 10 mg Tablet PO SCH (09:00)
[2018-11-06] MEDS ORDERED: MULTIVIT MIN PO SCH (09:00)
[2018-11-06] MEDS ORDERED: MAGNESIUM OXIDE 1000 MG PO SCH (09:00)
[2018-11-06] MEDS ORDERED: Cyanocobalamin (Vitamin B-12) 1,000 MCG TAB PO SCH (09:00)
[2018-11-06] MEDS ORDERED: Magnesium Oxide 250 MG TAB PO SCH (09:00)
[2018-11-06] MEDS ORDERED: Ascorbic Acid 500 mg Chewable Tablet PO SCH (09:00)
[2018-11-06] MEDS ORDERED: Famotidine 20 MG TAB PO SCH (09:00)
[2018-11-06] MEDS ORDERED: [UNRECOGNIZED DRUG - OTHER] PO SCH (09:00)
[2018-11-06] MEDS ORDERED: LUT PO SCH (09:00)
[2018-11-06] MEDS ORDERED: Non-Formulary Item 1 EACH (Iron [Iron] 65 MG) PO SCH (09:00)
[2018-11-06] MEDS ORDERED: LYCOPENE PO SCH (09:00)
[2018-11-06] MEDS ORDERED: Multivit, Therapeutic 1 TAB PO SCH (09:00)
[2018-11-06] MEDS ORDERED: CABOZANTINIB S MALATE 60 MG PO SCH ×2 (09:00)
[2018-11-06] MEDS: Cholestyramine/Aspartame 4 gm Packet PO SCH (09:50)
[2018-11-06] MEDS: Amlodipine 5 MG TAB PO SCH (09:52)
[2018-11-06 11:10] VITALS: TEMP 99.8
--- NOTE | 2018-11-06 15:43 | PRG ---
DATE OF SERVICE: 11/06/2018 SUBJECTIVE: Patient was seen and examined at bedside and overnight events noted. Patient denies any shortness of breath or chest pain or palpitation. No history of nausea or vomiting or diarrhea or fever or chills or cramps. OBJECTIVE: GENERAL: This is a well-built male in no acute distress. VITAL SIGNS: Temperature 99.8. Heart rate 88. Respiratory rate . Blood pressure 106/63. HEENT: Atraumatic, normocephalic. Oral mucosa is moist NECK: Supple. CARDIOVASCULAR: S1, S2 heard. Rate and rhythm regular. RESPIRATORY: Clear to auscultation. GASTROINTESTINAL: Abdomen is soft. MUSCULOSKELETAL: No tenderness. No edema. DERMATOLOGIC: No skin rash. NEUROLOGIC: Alert and awake and oriented X3. No focal neurologic deficits. Moving all the extremities. PSYCHIATRIC: Mood and affect normal. LABORATORY DATA: Potassium is 3.7, BUN is 61, creatinine is 5.1. ASSESSMENT AND PLAN: 1. Acute kidney injury on chronic kidney disease, stage 5 with poor prognosis. 2. Metabolic acidosis. 3. Hyponatremia. 4. Anemia. 5. Metastatic renal cell carcinoma. The patient is going home with [facility]. I will sign off. Job ID: [id number]
[2018-11-06] MEDS ORDERED: Warfarin Sodium 5 MG TAB PO SCH (17:00)
--- NOTE | 2018-11-07 03:04 | DIS ---
DATE OF ADMISSION: 11/02/2018 DATE OF DISCHARGE: 11/06/2018 DISCHARGE DIAGNOSES: 1. Acute kidney injury, likely end-stage renal disease secondary to metastatic renal cell carcinoma. 2. Acute metabolic encephalopathy, multifactorial, improved. 3. Warfarin-induced coagulopathy, resolved. 4. Metastatic renal cell carcinoma, end-stage process. 5. Severe protein-calorie malnutrition. CONSULTATIONS: Dr. Luz with Nephrology Service. PERTINENT LABORATORY AND X-RAY FINDINGS: Sodium ranged between 134 to 138. Creatinine ranged between 5.02 to 6.03. Estimated GFR ranged between 9 to 11. Albumin ranged between 2.1 to 2.4. CBC showed a hemoglobin ranged between 11.2 to 11.8. INR ranged between 1.[address] of the abdomen and pelvis dated 11/02/2018 showed marked interval increase in size of soft tissue mass of the left perirenal space consistent with renal cell carcinoma with associated metastasis. Interval enlargement of the inferior pole left renal mass. Periaortic adenopathy suggestive of metastatic process noted. Portable chest x-ray dated 11/02/2018 showed no acute cardiopulmonary process. CT of the brain without contrast dated 11/02/2018 showed no acute intracranial process. HOSPITAL COURSE: The patient was initially admitted after presenting with altered mental status, confusion, and decreased oral intake. The patient with a significant history of advanced renal cell carcinoma, presenting with the above complaints. The patient was initially noted with elevated INR level of 10 in the context of chronic Coumadin therapy. The patient was discontinued on Coumadin and received vitamin K. Serial INR showed overall resolving of the Coumadin-induced coagulopathy. The patient underwent CT imaging of the abdomen and pelvis showing findings as described previously with advanced renal cell carcinoma with metastasis. The patient also was noted with acute kidney injury, treated with IV fluids. However, this was deemed an obstructive uropathy due to the renal cell carcinoma, not improving with IV fluid hydration and discontinuation of nephrotoxic agents. The patient was initially considering pursuing hemodialysis as an option. However, due to the patient's multiple comorbid status and advanced renal cell carcinoma, no specific improvement and quality of life or outcome was expected by initiating hemodialysis. The patient and his decided to pursue hospice care and will transition to hospice for home. I have examined the patient at the time of discharge and discussed followup instructions. The patient and verbalized understanding and in agreement, ready for discharge on 11/06/2018. DISCHARGE MEDICATIONS: 1. Amlodipine 5 mg p.o. daily. 2. Vitamin C 500 mg p.o. daily. 3. Cabometyx 60 mg p.o. daily. 4. Calcitriol 0.5 mcg p.o. b.i.d. 5. Cholestyramine 4 g p.o. t.i.d. 6. Vitamin B12 1000 mcg p.o. daily. 7. Lexapro 10 mg p.o. daily. 8. Nexium 20 mg p.o. daily. 9. Iron 65 mg p.o. daily. 10. Levothyroxine 175 mcg p.o. daily. 11. Magnesium oxide 1000 mg p.o. daily. 12. Pravachol 80 mg p.o. daily. 13. Multivitamin 1 tablet p.o. daily. 14. Coumadin 2 mg p.o. daily. FOLLOWUP: The patient may follow up with his primary care provider, Dr. Rito Son. CONDITION ON DISCHARGE: Guarded. ACTIVITY: Ad-kyle. DIET: Regular. CODE STATUS: Do not attempt resuscitation. DISPOSITION: Discharged home with [facility] on 11/06/2018. TIME SPENT: Total time preparing and coordinating discharge, 32 minutes. Job ID: [id number]
== END 2018-11-06 15:26 | disposition hospice, home (50) | DRG 682 ==
LOC: ERS 11:34 → T4-B 17:17 → IMCU/EMU 20:44
PROVIDERS: ADMIT Internal Medicine; ATTEND Internal Medicine
DX: N17.9 Acute kidney failure, unspecified (principal); G93.41 Metabolic encephalopathy; E43 Unspecified severe protein-calorie malnutrition; I12.0 Hypertensive chronic kidney disease with stage 5 chronic kidney disease or end stage renal disease; E87.2 Acidosis; E87.1 Hypo-osmolality and hyponatremia; D68.8 Other specified coagulation defects; C64.2 Malignant neoplasm of left kidney, except renal pelvis; N18.6 End stage renal disease; E78.00 Pure hypercholesterolemia, unspecified; E03.9 Hypothyroidism, unspecified; F41.9 Anxiety disorder, unspecified; F32.9 Major depressive disorder, single episode, unspecified; D63.1 Anemia in chronic kidney disease; T45.515A Adverse effect of anticoagulants, initial encounter; Z95.2 Presence of prosthetic heart valve; Z79.899 Other long term (current) drug therapy; Z68.20 Body mass index [BMI] 20.0-20.9, adult; Z79.01 Long term (current) use of anticoagulants
CPT/HCPCS: 36415; 70450; 71045; 74176; 80048; 80053; 81001; 85025; 85610; 85730; 93005; 96360; J3430; J7050; J7070; Q9967; S0028